=== PATIENT | male | born 1960 ===

== ENCOUNTER → 2021-06-02 | Outpatient (CLI) | LOC: LABNPT 15:18 | PROVIDERS: ATTEND Pathology Anatomic Pathology & Clinical Pathology | DX: Z20.822 Contact with and (suspected) exposure to COVID-19 (principal) | CPT/HCPCS: 87636 ==

== ENCOUNTER → 2021-09-09 | Outpatient (CLI) | LOC: LABNPT 08:29 | PROVIDERS: ATTEND Internal Medicine Cardiovascular Disease | DX: Z20.822 Contact with and (suspected) exposure to COVID-19 (principal) | CPT/HCPCS: 87636 ==